=== PATIENT | male | born 1955 | race African-American/Black ===

== ENCOUNTER 2024-05-26 09:18 | Emergency (ER) | payer OTHER, MEDICARE, SELFPAY ==
[2024-05-26] VITALS (13 sets, daily range): BP systolic 139–165; BP diastolic 67–94; PULSE 60–80; RESP 16–18; TEMP 36.4; O2SAT 99–100
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
[2024-05-26 09:50] LABS: Basophils Percent Auto 0.5 % (0.2-1.2); Eosinophils Absolute Auto 0.1 K/mm3 (0-0.3); Eosinophils Percent Auto 1.7 % (0-4.4); Hemoglobin 13.2 g/dL (14.0-18.0); Immature Granulocyte Absolute 0.01 K/mm3 (0.00-0.031); Immature Granulocyte Percent A 0.1 % (0-0.5); Lymphocytes Percent Auto 46.6 % (18.3-44.2); Mean Corpuscular HGB Conc 31.4 g/dl (32-36); Mean Corpuscular Hemoglobin 28.1 pg (26-34); Mean Corpuscular Volume 89.6 fl (80-100); Mean Platelet Volume 9.6 fl (7.4-10.4); Monocytes Absolute Auto 0.6 K/mm3 (0.1-0.6); Monocytes Percent Auto 8.1 % (2.6-8.5); Neutrophils Absolute Auto 3.2 K/mm3 (1.3-6.7); Platelet Count Result 302 k/mm3 (150-375); Red Blood Count 4.69 M/mm3 (4.6-6.20); Red Cell Distribution Width 15.5 % (11.5-14.5); White Blood Count 7.5 K/mm3 (4.5-10.0)
[2024-05-26 09:59] LABS: Estimated CRCL calculation 65 ml/min; Estimated Glomerular Filt Rate > 60
[2024-05-26 09:59] LABS: Alanine Aminotransferase 28 U/L (6-50); Albumin Level 4.2 g/dL (3.5-5.1); Alkaline Phosphatase 50 U/L (38-126); Anion Gap 6 mmol/L (4-12); Aspartate Amino Transferase 31 U/L (17-59); Bilirubin,Total 0.5 mg/dL (0.2-1.3); Blood Urea Nitrogen 6 mg/dL (9-20); Calcium 8.8 mg/dL (8.4-10.2); Carbon Dioxide 27 mmol/L (22-30); Chloride 106 mmol/L (98-107); Estimated CRCL calculation 74 ml/min; Estimated Glomerular Filt Rate > 60; Glucose 95 mg/dL (65-110); Potassium 4.5 mmol/L (3.4-5.0); Sodium 139 mmol/L (137-145)
[2024-05-26 10:06] LABS: Partial Thromboplastin Time 26.8 Seconds (22.3-36.8); Prothrombin Time 13.2 Seconds (11.1-14.7)
[2024-05-26] MEDS: TETANUS,DIPHTHERIA,AC PERTUSSIS ADULT (0.5 ML) BOOSTRIX IM (10:08)
--- OUTSIDE RECORDS SUMMARY | 2024-05-26 10:50 | XMS_ITS | Data Portability ---
Author Organization [facility] [place],, [facility] - [facility] Address [address] [place] [address] Care Team Providers Care Bindery Machine Setter/Set Up Operator Name Role Phone BEBO CELINE Primary Care Provider BLANCHE MURILLO Entertainer Or Variety Artist TASHA RIVERS Philosophy Lecturer BHARATHI CANELA Software Sales Executive [facility] Medical Oncologist [phone] Assessment Encounter Date Assessment Date Assessment LastModified by Organization Details LastModified Time 07/23/2022 07/23/2022 Time Spent: Alcohol screening 2 minutes, and counseling (if performed): minutes. Depression screening 2 minutes, and counseling (if performed): minutes. Not available 07/23/2022 15:36:39 07/25/2023 07/25/2023 Time Spent: Alcohol screening 1 minutes, and counseling (if performed): minutes. Depression screening 2 minutes, and counseling (if performed): minutes. Falls: Number of falls in the past year: 0 [email or web address] Not available 07/25/2023 11:36:00 08/08/2023 08/08/2023 The total time of this patient encounter was 26 minutes. This was time I personally provided/perform ed and excludes time provided/perform ed by ancillary staff. This may include time spent by me preparing to see the patient (eg, review of tests); obtaining and/or reviewing separately obtained history; performing a medically appropriate examination and/or evaluation; counseling and educating the patient/family/c aregiver; ordering medications, tests, or procedures; referring and communicating with other health child care cook (when not separately reported); documenting clinical information in the electronic or other health record; independently interpreting results (when not separately reported) and communicating results to the patient/family/c aregiver; or care coordination (when not separately reported). Not available 08/08/2023 21:57:53 Plan of Treatment Reminders Order Date Submit Date Provider Last Modified By Organization Details Last Modified Time Details Appointments *Medicare Annual Wellness 30 2024 10:00A Kacy READ, DO Not available Not available Not available Lab CMP, serum or plasma 2023 024 [facility] (Order Ancient Art Curator), [address] [facility] [place], [address], 11/27/2023 20:49:54 hemoglobi n A1C/hemog lobin total, QN, blood 2023 024 [facility] (Order Ancient Art Curator), [address] [facility] [place], [address], 11/27/2023 20:49:53 hemoglobi n A1C/hemog lobin total, QN, blood [address] Lab (Order Ancient Art Curator), [address] [facility] [place], [address], 12/21/2023 11:29:47 CMP, serum or plasma [address] [facility] (Order Ancient Art Curator), [address] [facility] [place], [address], 12/21/2023 11:29:47 CMP, serum or plasma 2023 024 [facility] (Order Ancient Art Curator), [address] [facility] [place], [address], 07/29/2023 22:30:00 CBC w/ auto diff 2023 024 [facility] (Order Ancient Art Curator), [address] [facility] [place], [address], 07/29/2023 22:29:58 TSH, serum or plasma 2023 024 [facility] (Order Ancient Art Curator), [address] [place], [address], 07/29/2023 22:30:08 T4, free, serum 2023 024 [facility] (Order Ancient Art Curator), [address] [facility] [place], [address], 07/29/2023 22:30:05 hemoglobi n A1C/hemog lobin total, QN, blood 2023 024 [facility] (Order Ancient Art Curator), [address] [facility] [place], [address], 07/29/2023 22:30:09 vitamin B12 + folate, serum or blood 2023 024 [facility] (Order Ancient Art Curator), [address] [facility] [place], [address], 07/29/2023 22:30:06 ferritin, serum or plasma 2023 024 [facility] (Order Ancient Art Curator), [address] [facility] [place], [address], 07/29/2023 22:30:03 iron + total iron-bind ing capacity (TIBC), serum 2023 024 [facility] (Order Ancient Art Curator), [address] [facility] [place], [address], 07/29/2023 22:30:02 Referral pulmonolo gist referral 2023 024 6 Bharathi Canela MD, [address] [place] [address], [place], [address], 11/14/2023 10:49:45 oncologis t referral - 6 mm sclerotic focus right iliac wing on CT abdomen and pelvis performed on 08/06/23 for evaluatio n of unintenti onal weight loss in patient with history of prostate cancer 2023 024 [email or web address] 6 Natividad Dukes MD, [address] [place], [address], 11/14/2023 10:49:31 Procedures None recorded. Surgeries None recorded. Imaging CT, chest, w/o contrast [address] (Centralized Scheduling), [address] [place] [address] [place], [address], 09/06/2023 12:02:53 CT, abdomen + pelvis, w/o contrast 2023 024 [facility] (Centralized Scheduling), [address] [place] [address] [place], [address], 08/06/2023 16:00:42 LDCT, chest, for lung cancer screening 2022 023 [facility], [address] [facility] [place], [address], 12/27/2022 08:52:57 Medication Orders None recorded. Patient TargetsNo targets recorded. Patient Instructions Encounter Date Encounter Id Patient Instructions Last Modified By Organization Details Last Modified Time 07/23/2022 [id number] Quitting Tobacco : Care Instructions [email or web address] Not available 07/23/2022 15:46:11 multi-dimensiona l health assessment questionnaire* Not available 07/23/2022 15:46:11 Advance Care Directives Patient WebLink Handout [email or web address] Not available 07/23/2022 15:46:11 advance directiv es: care instructions Not available 07/23/2022 15:46:11 hearing loss: ca re instructions [email or web address] Not available 07/23/2022 15:46:11 heart-healthy di et: care instructions [email or web address] Not available 07/23/2022 15:46:11 dash diet: care instructions Not available 07/23/2022 15:46:11 preventing falls : care instructions Not available 07/23/2022 15:46:11 [facility] As we discussed today, I recommend that you make an attempt to quit tobacco. You may use nicotine patches, nicotine gum, nicotine lozenges, Bupropion, or Chantix to support your quit attempt. You declined my recommendation today. Please call our office if you change your mind. Personalized Health Plan and Screening Recommendations Advance Directives - Do you have one? No I recommend consulting with an Cook Chili, family member, or friend to assist you. Advance Directives - Do we have your advance directive on file in your health record? Primary Prevention/Intervent ion (prevents or decreases the chance of common diseases from occurring) Tobacco/Nicotine Risk: Smoker Refer to cessation handouts Alcohol Misuse Screening: Low risk Weight: Appropriate Physical activity: Increase exercise/physical activity level minimum of 10-20 minutes of activity that causes mild breathlessness/day m inimum of 20-30 minutes activity that causes mild breathlessness/day Nutrition: Good Fall Risk (screened today): Low risk Vaccines Influenza: Recommended Recommen ded today, but you have declined Your next one in the fall of this year Pneumococcal: Recommended Recommen ded today, but you have declined Series completed Shingles: Recommend first dose. Second dose due 2-6 months after first dose. There may be an out of pocket cost for preventative services. Recommend second dose. There may be an out of pocket cost for preventative services. Recommende d today, but you have declined Series completed COVID-19: Recommended Recommen ded today, but you have declined Series completed Series and booster completed Tetanus: Hepatitis B: Not indicated Secondary Prevention/Intervent ion (detects treatable diseases before they may cause symptoms, disability, or ) Prostate Cancer Screening: Osteoporosis Screening: not indicated Colon Cancer Screening: Colonoscopy Eye Disease Screening: Your next exam due: Recommended Depression Screening: Low risk Cognitive Screening: Normal Diabetes Screening: Cardiovascular Disease (CVD) Screening: labs - Current Diagnosis Aspirin Recommendations: you are at increased risk Daily aspirin recommended Abdominal Aortic Aneurysm (AAA) Screening: Not indicated Lung Cancer Screening: Hepatitis/ Sexually Transmitted Infection (STI)/ Human Immunodeficiency Virus (HIV) Screenings: You are not at increased risk, testing is not indicated today Tertiary Prevention/Intervent ion (identifies your current known diseases and attempts to prevent complications of those diseases) Complications of many of these diseases can be minimized through the primary prevention/intervent ions listed above but some may require medication addition/change or referrals and will be addressed today or at a follow-up appointment Pain Control Status: no pain or pain under adequate control Pain Medication Use and Risk for Opioid Misuse: You do not use addictive opioid medications, and therefore are not at risk Pain Management Plan: [email or web address] Not available 07/23/2022 21:31:32 07/25/2023 [id number] multi-dimensiona l health assessment questionnaire* [email or web address] Not available 07/25/2023 11:36:11 Advance Care Directives Patient WebLink Handout [email or web address] Not available 07/25/2023 11:36:10 advance directiv es: care instructions [email or web address] Not available 07/25/2023 11:36:11 hearing loss: ca re instructions [email or web address] Not available 07/25/2023 11:36:10 heart-healthy di et: care instructions [email or web address] Not available 07/25/2023 11:36:11 dash diet: care instructions [email or web address] Not available 07/25/2023 11:36:11 preventing falls : care instructions [email or web address] Not available 07/25/2023 11:36:11 Return to the [facility] in 2 weeks for follow up of unintentional weight loss and anorexia. Have lab and CTs performed as soon as possible using the orders we gave you today. Personalized Health Plan and Screening Recommendations Advance Directives - Do you have one? No I recommend consulting with an Cook Chili, family member, or friend to assist you. Advance Directives - Do we have your advance directive on file in your health record? Primary Prevention/Intervent ion (prevents or decreases the chance of common diseases from occurring) Tobacco/Nicotine Risk: Smoker Refer to cessation handouts Alcohol Misuse Screening: Low risk Weight: Appropriate Physical activity: Maintain appropriate physical activity Nutrition: Poor Refer to handout Heart-Healthy Diet: Care Instructions Fall Risk (screened today): Low risk Vaccines Influenza: Recommended Recommen ded today, but you have declined Your next one in the fall of this year Pneumococcal: Recommended Recommen ded today, but you have declined Series completed Shingles: Recommend first dose. Second dose due 2-6 months after first dose. There may be an out of pocket cost for preventative services. Recommend second dose. There may be an out of pocket cost for preventative services. Recommende d today, but you have declined Series completed COVID-19: Recommended Recommen ded today, but you have declined Series completed Series and booster completed Respiratory Syncytial Virus (RSV): Due: Recommended. There may be an out of pocket cost for preventive services Tetanus: Hepatitis B: Not indicated Secondary Prevention/Intervent ion (detects treatable diseases before they may cause symptoms, disability, or ) Prostate Cancer Screening: Osteoporosis Screening: not indicated Colon Cancer Screening: Colonoscopy Eye Disease Screening: Your next exam due: Recommended Hearing Screening: No exam necessary Depression Screening: Low risk Cognitive Screening: Normal Diabetes Screening: Due: Performed/Order ed today Cardiovascular Disease (CVD) Screening: labs - Current Diagnosis Aspirin Recommendations: you are at increased risk Daily aspirin recommended Abdominal Aortic Aneurysm (AAA) Screening: Not indicated Lung Cancer Screening: Hepatitis/Sexually Transmitted Infection (STI)/Human Immunodeficiency Virus (HIV) Screenings: You are not at increased risk, testing is not indicated today Tertiary Prevention/Intervent ion (identifies your current known diseases and attempts to prevent complications of those diseases) Complications of many of these diseases can be minimized through the primary prevention/intervent ions listed above but some may require medication addition/change or referrals and will be addressed today or at a follow-up appointment Pain Control Status: no pain or pain under adequate control Pain Medication Use and Risk for Opioid Misuse: You do not use addictive opioid medications, and therefore are not at risk Pain Management Plan: No interventions or changes required, alternative therapies have been assessed and documented in your chart [email or web address] Not available 07/25/2023 22:00:57 08/08/2023 [id number] Return to the [facility] in 3 months for follow up of Impaired glucose tolerance. Have lab performed one week prior to your follow up visit using the orders we gave you today. Take the following steps to improve your blood sugar and prevent development of Diabetes: reduce or avoid liquid calories (soda, sugar in coffee, sweet tea, energy drinks, sports drinks, milk, and juice); reduce intake of refined sugar (desserts, candy, processed foods); exercise 30 minutes per day 5 days per week. As we discussed today, I recommend that you make an attempt to quit tobacco. You may use nicotine patches, nicotine gum, nicotine lozenges, Bupropion, or Chantix to support your quit attempt. You declined my recommendation today. Please call our office if you change your mind. We will refer you to Oncology and Pulmonology. Please call our office if you have not been contacted within 7 days with consult details. Not available 08/08/2023 21:55:53 11/08/2023 [id number] Return to the [facility] in 3 weeks for follow up of Impaired glucose tolerance, elevated blood pressure and lab results. Have fasting lab performed one week prior to your follow up visit using the orders we gave you today. Take the following steps to improve your blood sugar and prevent development of Diabetes: reduce or avoid liquid calories (soda, sugar in coffee, sweet tea, energy drinks, sports drinks, milk, and juice); reduce intake of refined sugar (desserts, candy, processed foods); exercise 30 minutes per day 5 days per week. Take the following steps to improve your blood pressure: reduce intake of salt to less than 2000 mg per day; consume 5 or more servings of fruit and vegetables daily; exercise 30 minutes per day 5 days per week; reduce stress; avoid all tobacco products; limit or avoid alcohol intake. Monitor and record your blood pressure daily. Please sit in a chair with your back supported and both feet flat on the floor for 5 to 10 minutes before you check your blood pressure. Please bring your blood pressure log to your follow up visit. [email or web address] Not available 11/08/2023 22:48:13 11/29/2023 [id number] Return to the [facility] on 07/27/24 as scheduled for MWV. Take the following steps to improve your blood sugar and prevent development of Diabetes: reduce or avoid liquid calories (soda, sugar in coffee, sweet tea, energy drinks, sports drinks, milk, and juice); reduce intake of refined sugar (desserts, candy, processed foods); exercise 30 minutes per day 5 days per week. Not available 11/30/2023 10:58:15 Reason for Referral 6 mm sclerotic focus right i liac wing on CT abdomen and pelvis performed on 08/06/23 for evaluation of unintentional weight loss in patient with history of prostate cancer Referring Physician: [facility], Encounter Date: 08/08/2023 Software Sales Executive Referral for C hronic obstructive pulmonary disease Referring Physician: [facility], Encounter Date: 08/08/2023 Results Created Date Observation Date Name Description Value Unit Range Abnormal Flag Note LastModifiedBy Organization Detail LastModifiedTime 07/29/19 24 07/29/2023 CBC W-PLT AND W-AUT O DIFF WBC 7.8 thou/ uL 4.0-10 .6 Not Available [address] [place], [address], 07/29/2023 22:29:58 07/29/19 24 07/29/2023 CBC W-PLT AND W-AUT O DIFF RBC 4.75 mill/ uL 3.89-5 .65 Not Available [address] [place], [address], 07/29/2023 22:29:58 07/29/19 24 07/29/2023 CBC W-PLT AND W-AUT O DIFF hemoglobin 13.6 g/dL 12.2-1 7.5 Not Available [address] [place], [address], 07/29/2023 22:29:58 07/29/19 24 07/29/2023 CBC W-PLT AND W-AUT O DIFF hematocrit 42.8 % 35.6-5 0.6 Not Available [address] [place], [address], 07/29/2023 22:29:58 07/29/19 24 07/29/2023 CBC W-PLT AND W-AUT O DIFF MCV 90.1 fL 81.4-9 8.7 Not Available [address] [place], [address], 07/29/2023 22:29:58 07/29/19 24 07/29/2023 CBC W-PLT AND W-AUT O DIFF MCH 28.6 pg 27.2-3 3.0 Not Available [address] [place], [address], 07/29/2023 22:29:58 07/29/19 24 07/29/2023 CBC W-PLT AND W-AUT O DIFF MCHC 31.8 g/dL 31.5-3 5.4 Not Available [address] [place], [address], 07/29/2023 22:29:58 07/29/19 24 07/29/2023 CBC W-PLT AND W-AUT O DIFF platelets 355 thou/ uL 145-41 8 Not Available [address] [place], [address], 07/29/2023 22:29:58 07/29/19 24 07/29/2023 CBC W-PLT AND W-AUT O DIFF RDW 15.6 % 10.8-1 4.8 high Not Available [address] [place], [address], 07/29/2023 22:29:58 07/29/19 24 07/29/2023 CBC W-PLT AND W-AUT O DIFF MPV 9.9 fL 8.4-12 .4 Not Available [address] [place], [address], 07/29/2023 22:29:58 07/29/19 24 07/29/2023 CBC W-PLT AND W-AUT O DIFF neutrophils % 46.1 % 43.2-7 8.9 Not Available [address] [place], [address], 07/29/2023 22:29:58 07/29/19 24 07/29/2023 CBC W-PLT AND W-AUT O DIFF lymphocytes % 43.5 % 12.0-4 3.0 high Not Available [address] [place], [address], 07/29/2023 22:29:58 07/29/19 24 07/29/2023 CBC W-PLT AND W-AUT O DIFF monocytes % 7.7 % 3.7-13 .4 Not Available [address] [place], [address], 07/29/2023 22:29:58 07/29/19 24 07/29/2023 CBC W-PLT AND W-AUT O DIFF eosinophils % 1.8 % 0.0-6. 2 Not Available [address] [place], [address], 07/29/2023 22:29:58 07/29/19 24 07/29/2023 CBC W-PLT AND W-AUT O DIFF basophils % 0.6 % 0.0-1. 8 Not Available [address] [place], [address], 07/29/2023 22:29:58 07/29/19 24 07/29/2023 CBC W-PLT AND W-AUT O DIFF neutrophils absolute 3.6 thou/ uL 1.5-7. 1 Not Available [address] [place], [address], 07/29/2023 22:29:58 07/29/19 24 07/29/2023 CBC W-PLT AND W-AUT O DIFF lymphocytes absolute 3.4 thou/ uL 1.0-3. 5 Not Available [address] [place], [address], 07/29/2023 22:29:58 07/29/19 24 07/29/2023 CBC W-PLT AND W-AUT O DIFF monocytes absolute 0.6 thou/ uL 0.2-1. 0 Not Available [address] [place], [address], 07/29/2023 22:29:58 07/29/19 24 07/29/2023 CBC W-PLT AND W-AUT O DIFF eosinophils absolute 0.1 thou/ uL 0.0-0. 5 Not Available [address] [place], [address], 07/29/2023 22:29:58 07/29/19 24 07/29/2023 CBC W-PLT AND W-AUT O DIFF basophils absolute 0.1 thou/ uL 0.0-0. 2 Not Available [address] [place], [address], 07/29/2023 22:29:58 07/29/19 24 07/29/2023 COMP METAB PANEL sodium 139 mmol/ L 136-14 5 Not Available [address] [place], [address], 07/29/2023 22:30:00 07/29/19 24 07/29/2023 COMP METAB PANEL potassium 4.8 mmol/ L 3.5-5. 1 Not Available [address] [place], [address], 07/29/2023 22:30:00 07/29/19 24 07/29/2023 COMP METAB PANEL chloride 106 mmol/ L 98-112 Not Available [address] [place], [address], 07/29/2023 22:30:00 07/29/19 24 07/29/2023 COMP METAB PANEL CO2 26.0 mmol/ L 22.0-3 2.0 Not Available [address] [place], [address], 07/29/2023 22:30:00 07/29/19 24 07/29/2023 COMP METAB PANEL anion gap 11.8 6.0-14 .3 Not Available [address] [place], [address], 07/29/2023 22:30:00 07/29/19 24 07/29/2023 COMP METAB PANEL glucose 93 mg/dL 70-100 Not Available [address] [place], [address], 07/29/2023 22:30:00 07/29/19 24 07/29/2023 COMP METAB PANEL BUN 11 mg/dL 7-18 Not Available [address] [place], [address], 07/29/2023 22:30:00 07/29/19 24 07/29/2023 COMP METAB PANEL creatinine 1.0 mg/dL 0.6-1. 3 Not Available [address] [place], [address], 07/29/2023 22:30:00 07/29/19 24 07/29/2023 COMP METAB PANEL BUN/creat ratio 11.0 12.0-2 0.0 low Not Available [address] [place], [address], 07/29/2023 22:30:00 07/29/19 24 07/29/2023 COMP METAB PANEL E-GFR >60 mL/mi n/1.7 3sq_m Not Available [address] [place], [address], 07/29/2023 22:30:00 07/29/19 24 07/29/2023 COMP METAB PANEL E-GFR amer >60 mL/mi n/1.7 3sq_m eGFR is calcu lated based on ethni city, age, and gende r. eGFR Inter preti ve Infor matio n: > 60 mL/mi n Healt hy Adult s 15-60 mL/mi n Chron ic Renal Disea se < 15 mL/mi n Renal Failu re PLEAS E NOTE: Inter preti ve infor matio n is not avail able for patie nts < 18 years of age and resul ts will not be repor tiffany. The eGFR equat ion has not been valid ated in patie nts older than 70 years of age, but may still be a usefu l tool for provi ders and will be repor tiffany. Not Available [address] [place], [address], 07/29/2023 22:30:00 07/29/19 24 07/29/2023 COMP METAB PANEL total protein 6.6 g/dL 6.6-8. 2 Not Available [address] [place], [address], 07/29/2023 22:30:00 07/29/19 24 07/29/2023 COMP METAB PANEL albumin 3.9 g/dL 3.4-4. 6 Not Available [address] [place], [address], 07/29/2023 22:30:00 07/29/19 24 07/29/2023 COMP METAB PANEL globulin 2.7 g/dL 2.7-4. 0 Not Available [address] [place], [address], 07/29/2023 22:30:00 07/29/19 24 07/29/2023 COMP METAB PANEL A/G ratio 1.4 0.9-1. 5 Not Available [address] [place], [address], 07/29/2023 22:30:00 07/29/19 24 07/29/2023 COMP METAB PANEL osmolality, calculated 268 mmol/ L Not Available [address] [place], [address], 07/29/2023 22:30:00 07/29/19 24 07/29/2023 COMP METAB PANEL calcium 9.3 mg/dL 8.4-10 .2 Not Available [address] [place], [address], 07/29/2023 22:30:00 07/29/19 24 07/29/2023 COMP METAB PANEL bilirubin, total 0.4 mg/dL 0.2-1. 0 Not Available [address] [place], [address], 07/29/2023 22:30:00 07/29/19 24 07/29/2023 COMP METAB PANEL AST 34 U/L 15-37 Not Available [address] [place], [address], 07/29/2023 22:30:00 07/29/19 24 07/29/2023 COMP METAB PANEL ALT 45 U/L 12-78 Not Available [address] [place], [address], 07/29/2023 22:30:00 07/29/19 24 07/29/2023 COMP METAB PANEL alkaline phosphatase 47 U/L 41-137 Not Available [address] [place], [address], 07/29/2023 22:30:00 07/29/19 24 07/29/2023 IRON \T\ TOTAL IRON LINDA NG iron 95 ug/dL 35-150 Not Available [address] [place], [address], 07/29/2023 22:30:02 07/29/19 24 07/29/2023 IRON \T\ TOTAL IRON LINDA NG total iron binding capacity 326 ug/dL 250-45 0 Not Available [address] [place], [address], 07/29/2023 22:30:02 07/29/19 24 07/29/2023 IRON \T\ TOTAL IRON LINDA NG iron saturation 29 % 20-55 Not Available [address] [place], [address], 07/29/2023 22:30:02 07/29/19 24 07/29/2023 ASHLYN TIN ferritin 130.8 NG/mL 26.0-3 88.0 Not Available [address] [place], [address], 07/29/2023 22:30:03 07/29/19 24 07/29/2023 THYRO XINE T4, FREE T4, free 0.91 NG/dL 0.76-1 .46 Not Available [address] [place], [address], 07/29/2023 22:30:05 07/29/19 24 07/29/2023 VIT B12/F OLIC ACID vitamin B12 346 pg/mL 200-90 0 Not Available [address] [place], [address], 07/29/2023 22:30:06 07/29/19 24 07/29/2023 VIT B12/F OLIC ACID folate, serum 6.0 NG/mL 5.4-16 .0 Not Available [address] [place], [address], 07/29/2023 22:30:06 07/29/19 24 07/29/2023 TSH TSH 1.930 uIU/m L 0.358- 3.740 Not Available [address] [place], [address], 07/29/2023 22:30:07 07/29/19 24 07/29/2023 HEMOG LOBIN A1C HGB A1C 6.0 % 4.0-5. 7 high Resul ts for a diagn oses are inter prete d as follo ws: Below 5.7 is lito l 5.7 to 6.4 is diagn osed as predi abete s 6.5 or highe r on two seper ate tests indic ates diabe trudy Not Available [address] [place], [address], 07/29/2023 22:30:09 11/27/19 24 11/27/2023 HEMOG LOBIN A1C HGB A1C 5.8 % 4.0-5. 7 high Resul ts for a diagn oses are inter prete d as follo ws: Below 5.7 is lito l 5.7 to 6.4 is diagn osed as predi abete s 6.5 or highe r on two seper ate tests indic ates diabe trudy Not Available [address] [place], [address], 11/27/2023 20:49:53 11/27/19 24 11/27/2023 COMP METAB PANEL sodium 141 mmol/ L 136-14 5 Not Available [address] [place], [address], 11/27/2023 20:49:54 11/27/19 24 11/27/2023 COMP METAB PANEL potassium 4.9 mmol/ L 3.5-5. 1 Not Available [address] [place], [address], 11/27/2023 20:49:54 11/27/19 24 11/27/2023 COMP METAB PANEL chloride 108 mmol/ L 98-112 Not Available [address] [place], [address], 11/27/2023 20:49:54 11/27/1911/27/2023 COMP METAB PANEL CO2 28.0 mmol/ L 22.0-3 2.0 Not Available [address] [place], [address], 11/27/2023 20:49:54 11/27/1911/27/2023 COMP METAB PANEL anion gap 9.9 6.0-14 .3 Not Available [address] [place], [address], 11/27/2023 20:49:54 11/27/1911/27/2023 COMP METAB PANEL glucose 91 mg/dL 70-100 Not Available [address] [place], [address], 11/27/2023 20:49:54 11/27/1911/27/2023 COMP METAB PANEL BUN 10 mg/dL 7-18 Not Available [address] [place], [address], 11/27/2023 20:49:54 11/27/1911/27/2023 COMP METAB PANEL creatinine 1.0 mg/dL 0.6-1. 3 Not Available [address] [place], [address], 11/27/2023 20:49:54 11/27/1911/27/2023 COMP METAB PANEL BUN/creat ratio 10.0 12.0-2 0.0 low Not Available [address] [place], [address], 11/27/2023 20:49:54 11/27/1911/27/2023 COMP METAB PANEL E-GFR >60 mL/mi n/1.7 3sq_m Not Available [address] [place], [address], 11/27/2023 20:49:54 11/27/1911/27/2023 COMP METAB PANEL E-GFR amer >60 mL/mi n/1.7 3sq_m eGFR is calcu lated based on ethni city, age, and gende r. eGFR Inter preti ve Infor matio n: > 60 mL/mi n Healt hy Adult s 15-60 mL/mi n Chron ic Renal Disea se < 15 mL/mi n Renal Failu re PLEAS E NOTE: Inter preti ve infor matio n is not avail able for patie nts < 18 years of age and resul ts will not be repor tiffany. The eGFR equat ion has not been valid ated in patie nts older than 70 years of age, but may still be a usefu l tool for provi ders and will be repor tiffany. Not Available [address] [place], [address], 11/27/2023 20:49:54 11/27/1911/27/2023 COMP METAB PANEL total protein 6.7 g/dL 6.6-8. 2 Not Available [address] [place], [address], 11/27/2023 20:49:54 11/27/1911/27/2023 COMP METAB PANEL albumin 3.7 g/dL 3.4-4. 6 Not Available [address] [place], [address], 11/27/2023 20:49:54 11/27/1911/27/2023 COMP METAB PANEL globulin 3.0 g/dL 2.7-4. 0 Not Available [address] [place], [address], 11/27/2023 20:49:54 11/27/1911/27/2023 COMP METAB PANEL A/G ratio 1.2 0.9-1. 5 Not Available [address] [place], [address], 11/27/2023 20:49:54 11/27/1911/27/2023 COMP METAB PANEL osmolality, calculated 271 mmol/ L Not Available [address] [place], [address], 11/27/2023 20:49:54 11/27/1911/27/2023 COMP METAB PANEL calcium 9.0 mg/dL 8.4-10 .2 Not Available [address] [place], [address], 11/27/2023 20:49:54 11/27/1911/27/2023 COMP METAB PANEL bilirubin, total 0.4 mg/dL 0.2-1. 0 Not Available [address] [place], [address], 11/27/2023 20:49:54 11/27/1911/27/2023 COMP METAB PANEL AST 27 U/L 15-37 Not Available [address] [place], [address], 11/27/2023 20:49:54 11/27/1911/27/2023 COMP METAB PANEL ALT 41 U/L 12-78 Not Available [address] [place], [address], 11/27/2023 20:49:54 11/27/1911/27/2023 COMP METAB PANEL alkaline phosphatase 46 U/L 41-137 Not Available [address] [place], [address], 11/27/2023 20:49:54 12/28/19 23 12/26/2022 LDCT, chest , for lung cance r scree gladys No observ ation record ed. [facility] [address] [facility] [place], [address], 12/31/2022 14:54:07 08/06/19 24 08/06/2023 CT, abdom en + pelvi s, w/o contr ast [facility] [address] [place] [address] [phone] IMAGIN G REPORT NAME: ISAAK OLSEN Room #: : 1955 Accoun t #: [id number] Admit Date/T nazia: Age: 68 Patien t Type: Exam Date/T nazia: 2023 13:55 Sex: M Order #: [id number] Access ion: [id number] Class: CTAPWO Orderi ng Physic hui: , Attend ing Physic hui: , Primar y Care Physic hui: GAGANDEEP READ L CT ABDOME N AND PELVIS WITHOU T CONTRA ST HISTOR Y: ABNORM AL WT LOSS WITH HISTOR Y OF PROSTA TE CANCER COMPAR DEBORAH: None TECHNI QUE: Images of the abdome n and pelvis were obtain ed withou t IV contra st. Oral contra st was not given. The sensit ivity of evalua tion of the vascul ar and viscer al organs is lessen ed by lack of intrav enous contra st. CONTRA ST: None. FINDIN GS: CT ABDOME N: Lung Bases: Nodule s in the right middle lobe and right lower lobe measur e up to 6 mm. Liver: No signif icant abnorm ality. Biliar y: No signif icant abnorm ality. Spleen : No signif icant abnorm ality. Unenla rged. Pancre as: No signif icant abnorm ality. Adrena ls: No signif icant abnorm ality. Right Kidney : No nephro lithia sis or hydron ephros is. Left Kidney : No nephro lithia sis or hydron ephros is. Lympha tics: No lympha denopa thy. Vascul ature: Abdomi nal aortic and branch vessel athero sclero tic calcif icatio ns withou t aortic aneury sm. Bowel/ Perito neum: Nonobs tructi ve bowel. Sigmoi d divert iculos is withou t mesoco lonic fat strand ing. No free air. No free fluid. Normal append ix. CT PELVIS : : Prosta tectom y. Page 1 of 2 NAME: ISAAK OLSEN Room #: : 1955 Accoun t #: [id number] Admit Date/T nazia: Age: 68 Patien t Type: Exam Date/T nazia: 2023 13:55 Sex: M Order #: [id number] Access ion: [id number] Class: CTAPWO Orderi ng Physic hui: , Attend ing Physic hui: , Primar y Care Physic hui: GAGANDEEP READ L Osseou s Struct ures: Multif ocal degene rative change . 6 mm sclero tic focus in the right iliac wing. Additi onal Findin gs: None IMPRES SOL: 1. 6 mm sclero tic focus in the right iliac wing. In the absenc e of compar deborah studie s, this is indete rminat e with differ ential includ ing bone island or sclero tic metast asis. 2. Otherw ise no eviden ce of metast atic diseas e. Prosta tectom y. 3. Small nodule s are presen t in the visual ized right middle lobe and right lower lobe. See dedica tiffany chest CT for furthe r jose cruz sol. Signer Name: Sukhdeep rock DO Signed : 024 2:56 PM CDT (PS360 ) This exam was perfor med using automa tiffany exposu re contro l, adjust ment of mA or kV accord ing to patien t size, and/or use of iterat kellie recons tructi on techni que. Page 2 of 2 [email or web address] [facility] [address] [place] [address] [place], [address], 08/08/2023 11:26:20 08/07/19 24 08/06/2023 CT, chest , w/o contr ast [facility] [address] [place] [address] [phone] IMAGIN G REPORT NAME: ISAAK OLSEN Room #: : 1955 Accoun t #: [id number] Admit Date/T nazia: Age: 68 Patien t Type: Exam Date/T nazia: 2023 13:52 Sex: M Order #: [id number] Access ion: [id number] Class: CTCHWO 5 Orderi ng Physic hui: , Attend ing Physic hui: , Primar y Care Physic hui: Gagandeep Read CT CHEST WITHOU T CONTRA ST HISTOR Y: ABNORM AL WT LOSS WITH HISTOR Y OF PROSTA TE CANCER COMPAR DEBORAH: 2022 TECHNI QUE: Routin e CT images of the chest were obtain ed withou t the admini strati on of intrav enous contra st. CONTRA ST: None. FINDIN GS: Lack of intrav enous contra st limits evalua tion of the vascul ar and soft tissue struct ures. Heart: The heart size is within normal limits . There is no perica rdial effusi on. Amador ry Arteri al Calcif icatio ns: Modera te amador ry arteri al calcif icatio n is presen t. Vascul ature: There is calcif icatio n of the thorac ic aorta. The main pulmon alvina artery is of normal size. Lympha tics: There are small calcif ied right hilar lymph nodes. Lungs: Mild parase ptal emphys patito is reiden tified . Severa l small subple ural right- sided noncal cified pulmon alvina nodule s are unchan ged, the larges t on image 58 series 3 measur ing 7 mm in diamet er, simila r to the prior. A 7 mm perifi ssural nodule anteri rosy is unchan ged on image 69 series 3. There is no pneumo thorax , pleura l effusi on or focal consol idatio n. Trache a and bronch i: No abnorm ality. Page 1 of 2 NAME: ISAAK OLSEN Room #: : 1955 Accoun t #: [id number] Admit Date/T nazia: Age: 68 Patien t Type: Exam Date/T nazia: 2023 13:52 Sex: M Order #: [id number] Access ion: [id number] [facility] Orderi Physic hui: , Attend ing Physic hui: , Primar y Care Physic hui: Gagandeep Read Osseou s struct ures: There is no eviden ce of acute fractu re or disloc ation. No suspic ious bony lesion s are identi fied. There is mild multil evel thorac ic spine degene rative change . Additi onal Findin gs: A lipoma is incide ntally noted within the right pector taisha muscle . An acute proces s is not identi fied in the upper abdome n IMPRES SOL: 1. No acute proces s or eviden ce of metast atic diseas e. 2. Stable noncal cified pulmon alvina nodule s. Signer Name: Joey Rubin MD Signed : 024 12:49 PM EDT (PS360 ) This exam was perfor med using automa tiffany exposu re contro l, adjust ment of mA or kV accord ing to patien t size, and/or use of iterat kellie recons tructi on techni que. [facility] Clinic al Qualit y Measur ement Guidel ine: Low dose lung cancer screen ing is recomm ended for patien ts 50-77 years of age with risk factor s ,such as emphys patito. The presen ce of pulmon alvina emphys patito on CT is an indepe ndent risk factor for lung cancer . Page 2 of [address] Radiology [address] [place] [address] , [place], [address], 09/06/2023 12:02:53 Result Notes None recorded. Problems Name Problem SNOMED Code Status Onset Date Resolution Date Notes Provider Name and Address Organization Details Recorded Time Carcinoma of prostate 387769360 Completed 201807/18/2022 Ray reagan RN [email or web address], [facility], 3 10:57:20 Unintenti onal weight loss 613402896 Completed 201906/09/2020 CELINE READ 1 [facility] [place], [address], [facility], 4 10:56:47 Impaired glucose tolerance 4086495 Completed 201906/09/2020 CELINE READ [address] [place], [address], [facility], 4 11:36:51 Tobacco user 662916099 Active 2019 CELINE READ 1 [facility] [place], [address], [facility], 2 17:21:35 Family history: neoplasm - trachea/b ronchus/l carolina Active 2019 CELINE READ [address] [place], [address], [facility], 2 17:21:35 Dyslipide gerson 987745105 Completed 201906/09/2020 CELINE READ [address] [place], [address], [facility], 1 17:46:49 History of radical prostatec radha 692294767567 109 Active 2020 CELINE READ 1 [facility] [place], [address], [facility], 2 17:21:35 Diverticu losis of colon 937788803 Active 2021 CELINE READ [address] [place], [address], [facility], 2 17:31:13 Atheroscl erosis of coronary artery without angina pectoris 662149634372 103 Active 2021 CELINE READ [address] [place], [address], [facility], 2 17:31:14 History of malignant neoplasm of prostate 773913097 Active 2022 CELINE READ [address] [place], [address], [facility], 3 15:49:24 Tobacco cessation informati on declined 627306545415 6 Active 2022 CELINE READ [address] [place], [address], [facility], 3 15:50:15 Impaired glucose tolerance 7805887 Active 2023 CELINE READ [address] [place], [address], [facility], 4 11:36:51 Multiple nodules of lung 204497800 Active 2023 CELINE READ [address] [place], [address], [facility], 4 11:36:53 Chronic obstructi ve pulmonary disease 31838295 Active 2023 CELINE READ [address] [place], [address], [facility], 4 11:36:55 Imaging result abnormal 858899878 Active 2023 CELINE READ [address] [place], [address], [facility], 4 11:36:56 Elevated blood-pre ssure reading without diagnosis of hypertens ion 752056836 Active 2023 CELINE READ [address] [place], [address], [facility], 4 11:27:47 Problem Notes None recorded. Procedures Surgical History Date Name Laterality Status Provider Name and Address Organization Details Recorded Time 07/25/19 Medicare Wellness CPT Code, Subsequent completed May SHAMEKA Odonnell [facility], 07/25/2023 11:06:23 07/24/19 23 Medicare Wellness CPT Code, Subsequent completed Ray Grove RN [facility], 07/18/2022 10:56:42 06/13/19 22 Medicare Wellness CPT Code, Subsequent completed Ray Grove RN [facility], 06/06/2021 14:43:24 01/17/20 21 Colonoscopy completed CELINE READ, [address] [place], [place], [address], [facility], 06/12/2021 17:18:35 06/10/19 21 HEDIS Systolic BP < 130 mm Hg completed May Blas [facility], 06/09/2020 17:32:59 06/10/19 21 HEDIS Diastolic BP < 80 mm Hg completed May Blas [facility], 06/09/2020 17:33:02 06/10/19 21 Medicare Wellness CPT Code, Initial completed Ray Grove RN [facility], 06/03/2020 12:21:28 06/10/19 21 Mini-Cog Assessment completed Ray Grove RN [facility], 06/03/2020 12:21:28 06/10/19 21 Telehealth_MWV_BM I-Must_be_documen ted_Screening completed Ray Grove RN [facility], 06/03/2020 12:21:28 06/10/19 21 Cognitive Screening (Phone only) completed Ray Grove RN [facility], 06/03/2020 12:21:28 06/10/19 21 Medicare Wellness CPT Code, Subsequent completed Rya Grove RN [facility], 06/03/2020 12:18:51 12/31/19 20 colonoscopy completed Ray Grove RN [facility], 06/03/2020 12:26:31 12/03/19 20 Telehealth Communication completed Helena Diggs [facility], 12/03/2019 08:40:36 08/31/19 19 Prostatectomy completed CELINE READ, [address] [place], [place], [address], [facility], 07/23/2022 15:35:30 08/12/19 19 prostatectomy completed Helena Diggs [facility], 12/03/2019 08:40:52 04/07/19 19 HEDIS Systolic BP 130-139 mm Hg completed May Blas [facility], 04/07/2018 16:38:15 04/07/19 19 HEDIS Diastolic BP < 80 mm Hg completed May Blas [facility], 04/07/2018 16:38:17 Imaging Results Imaging Date Name Status LastModified by Organiz ation Details LastModified Time 12/26/2022 LDCT, chest, for lung cancer screening completed [facility] [address] [facility] , [place], [address], 12/31/2022 14:54:07 08/06/2023 CT, abdomen + pelvis, w/o contrast completed [email or web address] [facility] [place], [address], 08/08/2023 11:26:20 08/06/2023 CT, chest, w/o contrast completed [address] [place], [address], 09/06/2023 12:02:53 Procedure Notes None recorded. Medical Equipment None Reported. Allergies No known drug allergies Medications Name Sig Start Date Stop Date Status Note LastModified by Organization Details LastModified Time hydrocodone 5 mg-acetamin ophen 325 mg tablet TAKE ONE TABLET BY MOUTH EVERY 6 HOURS NEEDED FOR PAIN 07/24 completed Not Available Not Available Not Available ciprofloxac in 500 mg tablet 12/02 completed Not Available Not Available Not Available peg-electro lyte solution 420 gram oral solution FOLLOW THE DIRECTION S LISTED ON THE LABEL OR PROVIDED BY YOUR PHYSICIAN OR PHARMACIS T 03/30 completed Not Available Not Available Not Available aspirin 81 mg tablet,hussain yed release Take 1 tablet every day by oral route. active Not Available Not Available No t Available amoxicillin 500 mg tablet TAKE ONE TABLET BY MOUTH EVERY 8 HOURS 07/24 completed Not Available Not Available Not Available cephalexin 500 mg capsule 12/02 completed Not Available Not Available Not Available Vitamin B-12 2,[address] ONE TABLET UNDER THE TONGUE ONE TIME DAILY active Not Available Not Available No t Available ezetimibe 10 mg tablet TAKE ONE TABLET BY MOUTH ONE TIME DAILY active Not Available Not Available No t Available rosuvastati n 10 mg tablet TAKE ONE TABLET BY MOUTH ONE TIME DAILY active Not Available Not Available No t Available tadalafil 5 mg tablet TAKE ONE TABLET BY MOUTH ONE TIME DAILY 03/30 completed Not Available Not Available Not Available chlorhexidi ne gluconate 0.12 % mouthwash AFTER BRUSHING TEETH, SWISH 15 ML UNDILUTED FOR 30 SECONDS, THEN SPIT OUT. USE AFTER BREAKFAST AND BEFORE BEDTIME, OR USE PRESCRIBE D. 07/24 completed Not Available Not Available Not Available COVID-19 test specimen collection TEST DIRECTED TODAY 03/30 completed Not Available Not Available Not Available Fluad Quad (6 5yr up)(PF) 60 mcg (15 mcg x 4)/0.5mL IM syringe INJECT 0.5ML INTRAMUSC ULARLY ONCE 12/02 completed Not Available Not Available Not Available Vitals Date Recorded Pain severity - 0-10 verbal numeric rating [Score] - Reported Body height Body mass index (BMI) Body weight Body temperature Oxygen saturation Oxygen saturation in Arterial blood by Pulse oximetry Heart rate Systolic blood pressure Diastolic blood pressure Provider Name and Address Organization Details Last Updated DateTime 3 0 172.72 cm 23.6 kg/m2 85237.8 2 g 98.9 [degF] 98 % 98 % 59 /min 134 mm[Hg] 84 mm[Hg] May SHAMEKA Odonnell [facility], 3 15:26:25 Date Recorded Pain severity - 0-10 verbal numeric rating [Score] - Reported Body height Body mass index (BMI) Body weight Body temperature Oxygen saturation Oxygen saturation in Arterial blood by Pulse oximetry Heart rate Systolic blood pressure Diastolic blood pressure Provider Name and Address Organization Details Last Updated DateTime 4 0 172.72 cm 22.2 kg/m2 61962.4 9 g 97.8 [degF] 99 % 99 % 77 /min 142 mm[Hg] 89 mm[Hg] May Blas [facility], 11:16:39 Date Recorded Body height Body mass index (BMI) Body weight Body temperature Oxygen saturation Oxygen saturation in Arterial blood by Pulse oximetry Heart rate Systolic blood pressure Diastolic blood pressure Provider Name and Address Organization Details Last Updated DateTime 172.72 cm 22.4 kg/m2 46338.0 8 g 97.7 [degF] 98 % 98 % 52 /min 138 mm[Hg] 83 mm[Hg] May Blas [facility], 10:57:57 Date Recorded Body height Body mass index (BMI) Body weight Body temperature Oxygen saturation Oxygen saturation in Arterial blood by Pulse oximetry Heart rate Systolic blood pressure Diastolic blood pressure Provider Name and Address Organization Details Last Updated DateTime 172.72 cm 22.8 kg/m2 53270.8 6 g 97.2 [degF] 99 % 99 % 48 /min 143 mm[Hg] 84 mm[Hg] May Blas [facility], 11:38:46 Date Recorded Body height Body mass index (BMI) Body weight Body temperature Oxygen saturation Oxygen saturation in Arterial blood by Pulse oximetry Heart rate Systolic blood pressure Diastolic blood pressure Provider Name and Address Organization Details Last Updated DateTime 172.72 cm 23 kg/m2 45997.4 5 g 98.2 [degF] 99 % 99 % 77 /min 149 mm[Hg] 95 mm[Hg] May Blas [facility], 11:05:51 Date Recorded Systolic blood pressure Diastolic blood pressure Provider Name and Address Organization Details Last Updated DateTime 11/29/2023 120 mm[Hg] 84 mm[Hg] CELINE READ [address] [place], [place], [address], [facility], 11/30/2023 10:56:09 Social History Question Answer Notes LastModified by Organizat ion Details LastModified Time Tobacco Smoking Status Current Every Day Smoker 0.5 PPD for 30 years CELINE READ DO [address] [place], [place], [address], [facility], 06/12/2021 17:32:35 Do You Have An Advance Directive? No [email or web address] Information not available 07/23/2022 What Is Your Level Of Alcohol Consumption? Moderate Information not available 07/23/2022 Are You Blind Or Do You Have Difficulty Seeing? No [email or web address] Information not available 07/23/2022 What Is Your Level Of Caffeine Consumption? Moderate [email or web address] Information not available 07/23/2022 How Much Tobacco Do You Chew? None Information not available 04/07/2018 Are You Currently Employed? Yes [email or web address] Information not available 07/23/2022 Are You Deaf Or Do You Have Serious Difficulty Hearing? No [email or web address] Information not available 07/23/2022 What Type Of Diet Are You Following? REGULAR [email or web address] Information not available 07/23/2022 Which Illicit Or Recreational Drugs Have You Used? No Information not available 04/07/2018 Education Post Graduate [email or web address] Information not available 07/23/2022 What Is The Highest Grade Or Level Of School You Have Completed Or The Highest Degree You Have Received? 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 No [email or web address] Information not available 07/23/2022 Marital Status [email or web address] Informatio n not available 07/23/2022 What Was The Date Of Your Most Recent Tobacco Screening? 11/29/2023 Information not available 11/29/2023 Do You Have Any Pets? No [email or web address] Information not available 07/23/2022 What Is Your Relationship Status? Information not available 07/23/2022 Do You Use Your Seat Belt Or Car Seat Routinely? Yes [email or web address] Information not available 07/23/2022 Seat Belts Used Routinely Yes Information not available 07/23/2022 Smoke Alarm In Home Yes Information not available 07/23/2022 Do You Have Smoke And Carbon Monoxide Detectors In Your Home? Yes [email or web address] Information not available 07/23/2022 At What Age Did You Start Smoking Tobacco? 24 [email or web address] Information not available 07/23/2022 Are You Passively Exposed To Smoke? No [email or web address] Information not available 07/23/2022 How Much Tobacco Do You Smoke? 1 PPD [email or web address] Information not available 07/23/2022 General Stress Level Low [email or web address] Information not available 07/23/2022 Do You Use Any Illicit Or Recreational Drugs? No [email or web address] Information not available 07/23/2022 Do You Use Sunscreen Routinely? No [email or web address] Information not available 07/23/2022 How Many Years Have You Smoked Tobacco? 20 [email or web address] Information not available 07/23/2022 Have You Recently Traveled Abroad? No [email or web address] Information not available 07/23/2022 Do You Or Have You Ever Used Any Other Forms Of Tobacco Or Nicotine? No [email or web address] Information not available 07/23/2022 Sex: Male Functional Status Question Answer Note LastModified by Organizat ion Details LastModified Time Do you have difficulty walking or climbing stairs? No [email or web address] Information not available 07/23/2022 Do you have difficulty doing errands alone? No [email or web address] Information not available 07/23/2022 Are you able to care for yourself? Yes [email or web address] Information not available 07/23/2022 Do you have difficulty dressing or bathing? No [email or web address] Information not available 07/23/2022 What is your exercise level? Occasional [email or web address] Information not available 07/23/2022 Mental Status Question Answer Note LastModified by Organization D etails LastModified Time Do you have difficulty concentrating, remembering or making decisions? No [email or web address] Information no t available 07/23/2022 Family History Relationship Description Onset Age of this Age Resolved Age Notes LastModified by Organization Details LastModified Time Father Disorder of stomach [email or web address] Not available 2023 10:52:29 Father Malignant tumor of lung [email or web address] Not available 2023 10:52:29 Father Malignant neoplastic disease 63 63 [email or web address] Not available 2022 21:30:07 Brother Large prostate [email or web address] Not available 2023 10:52:29 Brother Malignant neoplastic disease 65 70 [email or web address] Not available 2022 21:30:07 Brother Malignant neoplastic disease 62 68 [email or web address] Not available 2022 21:29:37 Medical History Condition Response RHEUMATIC FEVER N STROKE N DIABETES N PROSTATE N RADIATION / CHEMOTHERAPY N EYE PROBLEMS N CAROTID BLOCKAGE N SEIZURES N BACK / NECK PROBLEMS N FEMALE PROBLEMS / INFECTIONS N DEPRESSION (INCLUDING POST ) N BOWEL PROBLEMS N HAVE YOU BEEN HOSPITALIZED OR SEEN IN [facility] IN THE PAST YEAR ? N ATHEROSCLEROSIS N THYROID DISEASE N STD's N ULCERS N BREAST PROBLEMS N DIALYSIS N ADHD N HIV / AIDS N ANEURYSM N OSTEOPOROSIS N URINARY/BLADDER/KIDNEY PROBLEMS N ARTHRITIS N HEADACHES N USE OF BLOOD THINNERS N SKIN PROBLEMS N HIGH CHOLESTEROL N Psychiatric Care N HEARTBURN / REFLUX N BLOOD CLOTS N ASTHMA N HEPATITIS / LIVER DISEASE N PULMONARY DISEASE N GOUT N SLEEP DISORDER N HERPES N DEMENTIA N ALLERGIES N VASCULAR DISEASE N DIZZINESS N KIDNEY DISEASE N EAR PROBLEMS N LUNG DISORDER N HYPERTENSION N CARDIAC ARRHYTHMIA N CANCER: SPECIFY Y ANXIETY DISORDER N ANEMIA/BLOOD DISORDER N PNEUMONIA N PULMONARY EMBOLISM N BRONCHITIS N HEART DISEASE N CORONARY ARTERY DISEASE N TUBERCULOSIS N Immunizations Vaccine Type Date Status Note Provider Nam e and Address Organization Details Recorded Time pneumococcal polysaccharide PPV23 3 sona READ DO [address] [place] [address] Dr ALDANA, [place], [address], [facility], 07/23/2022 21:30:35 tetanus toxoid, unspecified formulation 0 sona READ DO [address] [place] [address] Dr ALDANA, [place], [address], [facility], 07/23/2022 15:37:18 zoster recombinant 1 sona READ DO [address] [place] [address] Dr ALDANA, [place], [address], [facility], 07/23/2022 15:37:18 zoster recombinant 1 sona READ DO [address] [place] [address] Dr ALDANA, [place], [address], [facility], 07/23/2022 15:37:18 Pneumococcal conjugate PCV 13 1 sona READ DO [address] [place] [address] Dr ALDANA, [place], [address], [facility], 07/23/2022 15:37:18 COVID-19, mRNA, LNP-S, PF, 100 mcg/0.5mL dose or 50 mcg/0.25mL dose 1 completed CELINE READ [address] ALDANA, [place], [address], [facility], 07/23/2022 15:37:18 COVID-19, mRNA, LNP-S, PF, 100 mcg/0.5mL dose or 50 mcg/0.25mL dose 1 completed CELINE READ [address] ALDANA, [place], [address], [facility], 07/23/2022 15:37:18 COVID-19, mRNA, LNP-S, PF, 100 mcg/0.5mL dose or 50 mcg/0.25mL dose 2 completed CELINE READ [address] ALDANA, [place], [address], [facility], 07/23/2022 15:37:18 COVID-19, mRNA, LNP-S, PF, 100 mcg/0.5mL dose or 50 mcg/0.25mL dose 1 completed CELINE READ [address] ALDANA, [place], [address], [facility], 07/23/2022 15:37:18 COVID-19, mRNA, LNP-S, bivalent, PF, 50 mcg/0.5 mL or 25mcg/0.25 mL dose 2 completed CELINE READ [address] ALDANA, [place], [address], [facility], 07/23/2022 15:37:18 Tdap 0 completed CELINE READ [address] ALDANA, [place], [address], [facility], 07/23/2022 15:37:18 Pneumococcal conjugate PCV 13 0 completed CELINE READ DO [address] [place] [address] Dr [place]DANA, [place], [address], [facility], 07/23/2022 15:37:18 Influenza, split virus, quadrivalent, PF 0 completed CELINE READ DO [address] [place] [address] Dr [place]DANA, [place], [address], [facility], 07/23/2022 15:37:18 Influenza, adjuvanted, quadrivalent, PF 2 completed CELINE READ [address] [place], [place], [address], [facility], 07/25/2023 11:37:01 Influenza, adjuvanted, quadrivalent, PF 1 completed CELINE READ DO [address] [place] [address] [place], [address], [facility], 07/25/2023 11:37:01 COVID-19, mRNA, LNP-S, PF, 50 mcg/0.5 mL 3 completed CELINE READ [address] [place], [address], [facility], 07/25/2023 11:37:01 Influenza, split virus, quadrivalent, PF 3 completed CELINE READ [address] [place], [address], [facility], 11/08/2023 11:57:31 Past Encounters Encounter ID Performer Location Encounter Start Date Encounter Closed Date Diagnosis/Indication Diagnosis SNOMED-CT Code Diagnosis ICD10 Code Diagnosis Note [id number] CELINE READ DO [facility] [address] [facility] [place] [address] 04/07/2018 16:19:05 04/07/2018 16:57:33 Screening for malignant neoplasm of colon 499500367 Z12.11 Screening for malignant neoplasm of prostate 706670494 Z12.5 Hyperlipid emia screening 357190238 Z13.220 Diabetes m ellitus screening 650990303 Z13.1 Adult heal th examination 188940656 Z00.00 [id number] CELINE READ [facility] [address] [address] 12/03/2019 08:35:23 12/03/2019 09:13:53 Impaired glucose tolerance 0436663 R73.03 Unintentio nal weight loss 054473686 R63.4 New Tobacco user 430197349 Z 72.0 Family his tory: neoplasm - trachea/bronchus/lung 060434408 Z80.1 Screening for malignant neoplasm of colon 644416022 Z12.11 Dyslipidemia 385571603 E 78.5 Active or passive immunization 914134111 Z23 [id number] CELINE READ [address] [address] 06/09/2020 16:57:19 06/09/2020 17:47:05 Adult health examination 065294843 Z00.00 Screening for disorder 196523848 Z13.89 Depression screening 171 551537 Z13.31 Carcinoma of prostate 25 1874406 C61 Family his tory: neoplasm - trachea/bronchus/lung 422940391 Z80.1 Tobacco user 269602194 Z 72.0 Body mass index 20-24 - normal 812204782 Z68.21 History of radical prostatectomy 1369213873 67423 Z90.79 [id number] CELINE READ [address] [address] 03/30/2021 16:41:27 03/30/2021 17:25:15 Body mass index 20-24 - normal 619462026 Z68.24 Injury of Achilles tendon 515227602 S86.002A Edema of l ower extremity 350125800 R60.0 Pain of le ft ankle joint 9435333279 4273378 M25.572 Atheroscle rosis of coronary artery without angina pectoris 6217266605 40317 I25.10 Carcinoma of prostate 25 1777894 C61 [id number] CELINETerry READ [facility] [address] [address] 06/12/2021 16:59:35 06/12/2021 17:35:04 Adult health examination 610677905 Z00.00 Screening for disorder 344490322 Z13.89 Depression screening 171 374868 Z13.31 Carcinoma of prostate 25 8157610 C61 History of radical prostatectomy 4339484207 13662 Z90.79 Tobacco user 333458492 Z 72.0 Body mass index 20-24 - normal 409850533 Z68.23 Diverticul osis of colon 324950210 K57.30 Atheroscle rosis of coronary artery without angina pectoris 4896934300 67298 I25.10 Hepatitis C screening 41 0701704 Z11.59 Tobacco us e cessation education 327193708 Z71.6 [id number] CELINE READ DO [facility] [address] [address] 07/23/2022 15:01:04 07/25/2022 17:51:21 Adult health examination 406219429 Z00.00 History of radical prostatectomy 7390749075 39510 Z90.79 Atheroscle rosis of coronary artery without angina pectoris 8865113189 37804 I25.10 Diverticul osis of colon 652684869 K57.30 Tobacco user 037913176 Z 72.0 Administra tion of pneumococcal vaccine 98733059 Z23 History of malignant neoplasm of prostate 643349425 Z85.46 Screening for malignant neoplasm of respiratory tract 321347835 Z12.2 Tobacco ce ssation information declined 6347170643 106 Z53.[id number] READ [facility] [address] [address] 07/25/2023 10:42:11 07/25/2023 11:53:20 Adult health examination 239927733 Z00.00 Unintentio nal weight loss 898299976 R63.4 Atheroscle rosis of coronary artery without angina pectoris 9802793263 11206 I25.10 Mean corpu scular hemoglobin concentration above reference range 068810767 R71.8 Loss of appetite 7935546 6 R63.0 Diverticul osis of colon 721832899 K57.30 History of malignant neoplasm of prostate 998874937 Z85.46 History of radical prostatectomy 9908565062 77187 Z90.79 Tobacco user 212631481 Z 72.0 Tobacco ce ssation information declined 3234089789 106 Z53.20 [id number] CELINE READ DO [facility] [address] [address] 08/08/2023 10:51:57 08/08/2023 11:37:26 Unintentional weight loss 879997596 R63.4 Loss of appetite 0004698 6 R63.0 Impaired g lucose tolerance 9858990 R73.03 Atheroscle rosis of coronary artery without angina pectoris 4396250741 83467 I25.10 Multiple n odules of lung 055106892 R91.8 Chronic ob structive pulmonary disease 12715210 J44.9 Imaging re sult abnormal 780479765 R93.89 6 mm sclerotic focus right iliac wing on CT abdomen and pelvis performed on 08/06/23 History of malignant neoplasm of prostate 431741140 Z85.46 Tobacco ce ssation information declined 2596304623 106 Z53.20 Tobacco user 501648308 Z 72.0 [id number] CELINE READ [facility] [address] [address] 11/08/2023 11:23:23 11/08/2023 12:09:29 Impaired glucose tolerance 8071277 R73.03 Increased blood pressure 63472716 R03.0 [id number] CELINE READ DO [facility] [address] [address] 11/29/2023 10:51:21 11/29/2023 11:35:55 Impaired glucose tolerance 4167600 R73.03 ChronicSta ble Elevated blood-pressure reading without diagnosis of hypertension 888780708 R03.0 Health Concerns Section Related Observation LastModified by Organization Detai ls LastModified Time None Recorded Concern Status LastModified by Organization Details LastModified Time None Recorded Advance Directives Directive N: Payers Encounter Date Sequence Insurance Name Policy Number Policy Turner Covered Member ID Turner Member ID Guarantor Name 07/23/2022 1 MEDICARE-[place] (MEDICARE) Isaak Olsen [id number] Isaak Olsen 07/23/2022 2 WPS - FOR LIFE (MEDICARE SUPPLEMENT) Isaak Swims [id number] Isaak Swims 07/25/2023 1 MEDICARE-[place] (MEDICARE) Isaak Zhang Swims [id number] Isaak Swims 07/25/2023 2 WPS - FOR LIFE (MEDICARE SUPPLEMENT) Isaak Swims [id number] Isaak Swims 08/08/2023 1 MEDICARE-[place] (MEDICARE) Isaak E Swims [id number] Isaak Swims 08/08/2023 2 WPS - FOR LIFE (MEDICARE SUPPLEMENT) Isaak Swims [id number] Isaak Swims 11/08/2023 1 MEDICARE-[place] (MEDICARE) Isaak E Swims [id number] Isaak Swims 11/08/2023 2 WPS - FOR LIFE (MEDICARE SUPPLEMENT) Isaak Swims [id number] Isaak Swims 11/29/2023 1 MEDICARE-[place] (MEDICARE) Isaak E Swims [id number] Isaak Swims 11/29/2023 2 WPS - FOR LIFE (MEDICARE SUPPLEMENT) Isaak Swims [id number] Isaak Swims Notes Date Note Type Note Provider Name and Address Organization Details Recorded Time 07/23/2022 text/html Patient presents for MWV. CELINE READ DO [address] [place] [address] [place], [address], [facility], 07/23/2022 21:33:48 07/25/2023 text/html Patient presents for MWV. Patient c/o unintentional weight loss of 9 pounds during the past 6 months accompanied by anorexia. He consumes one-half a plate of food at each of 2 meals daily. Patient denies fever, chills, abdominal pain, GERD, bloating, excessive gas, vomiting, diarrhea, constipation, rectal bleeding, or cough. CELINE READ DO [address] [place] [address] [place], [address], [facility], 07/25/2023 22:04:27 08/08/2023 text/html Patient presents for follow up of unintentional weight loss and anorexia. He consumes 2 meals per day and finishes one-half of a dinner plate per meal. Lab performed on 07/29/[address] of patient's abdomen and pelvis performed on 08/06/23 reveals 6 mm sclerotic focus right iliac wing and CT of his chest performed the same day reveals stable pulmonary nodules, mild paraseptal emphysema, and moderate coronary arterial calcification. CELINE READ [address] [place]NA, [place], [address], [facility], 08/08/2023 21:58:15 11/08/2023 text/html Patient c/o Impaired glucose tolerance and A1C 6 on 07/29/23. He did not have lab performed using the orders we gave him on 08/08/23. Patient c/o elevation of his blood pressure in our office today. He has a BP monitor at home but has not used it recently. CELINE READ [address] [place]NA, [place], [address], [facility], 11/08/2023 22:49:23 11/29/2023 text/html Patient c/o stab le chronic Impaired glucose tolerance treated with diet and exercise. Patient reports his blood pressure has been normal by daily self monitoring at home. Review of his log shows: 120/84, 133/81, 131/83, 130/70, 139/80, 131/79, 129/84, and 137/79. CELINE READ [address] [place]NA, [place], [address], [facility], 11/30/2023 10:58:35
== END 2024-05-26 12:22 | disposition short-term general hospital (02) ==
PROVIDERS: Emergency Provider Physician Assistant
DX: H11.33 Conjunctival hemorrhage, bilateral (principal); S05.01XA Injury of conjunctiva and corneal abrasion without foreign body, right eye, initial encounter; R91.8 Other nonspecific abnormal finding of lung field; Z23 Encounter for immunization; I25.10 Atherosclerotic heart disease of native coronary artery without angina pectoris; E78.5 Hyperlipidemia, unspecified; Z85.46 Personal history of malignant neoplasm of prostate; J43.9 Emphysema, unspecified; M47.812 Spondylosis without myelopathy or radiculopathy, cervical region; V47.6XXA Car passenger injured in collision with fixed or stationary object in traffic accident, initial encounter
CPT/HCPCS: 36415; 70450; 70486; 71260; 72125; 74177; 80053; 85025; 85610; 85730; 90471; 90715; 99285; Q9967